=== PATIENT | male | born 1950 | race Caucasian/White ===

== ENCOUNTER 2020-02-29 08:59 | Day surgery (SDC) | payer MEDICARE ==
[~2020-02-29] VITALS: Ht 182.9 cm; Wt 92.7 kg
[2020-02-29] MEDS ORDERED: FURO20TA3 PO (10:07)
[2020-02-29] MEDS ORDERED: FLUT9.9S INH (10:07)
[2020-02-29] MEDS ORDERED: DOXY25TA45 PO (10:07)
[2020-02-29] MEDS ORDERED: LOSA100T14 PO (10:07)
[2020-02-29] MEDS ORDERED: ALBU8.5H8 INH (10:07)
[2020-02-29] MEDS ORDERED: MELATONIN PO (10:07)
[2020-02-29] MEDS ORDERED: CYAN25009 PO (10:10)
[2020-02-29] MEDS ORDERED: MULT-658 PO (10:10)
[2020-02-29] MEDS ORDERED: CHOL200074 PO (10:10)
[2020-02-29] MEDS ORDERED: CHOL10003 PO (10:10)
[2020-02-29] MEDS ORDERED: OMEG1CAP6 PO (10:10)
[2020-02-29 10:11] VITALS: BP 134/72
[2020-02-29 10:23] LABS: BASOPHILS # (AUTO) 0.02 x10^3/uL (0-0.1); BASOPHILS % (AUTO) 0 % (0-1); EOSINOPHILS # (AUTO) 0.14 x10^3/uL (0-0.4); EOSINOPHILS % (AUTO) 2 % (1-7); LYMPHOCYTES # (AUTO) 0.85 x10^3/uL (1-3.4); LYMPHOCYTES % (AUTO) 13 % (22-44); MD NO; MEAN CORPUSCULAR HEMOGLOBIN 31.7 pg (27.5-34.5); MEAN CORPUSCULAR HGB CONC 33.2 g/dL (33.2-36.2); MEAN CORPUSCULAR VOLUME 95.4 fL (81-97); MEAN PLATELET VOLUME 9.1 fL (7.4-10.4); MONOCYTES # (AUTO) 0.56 x10^3/uL (0.2-0.8); MONOCYTES % (AUTO) 8 % (2-9); NEUTROPHILS # (AUTO) 5.09 x10^3/uL (1.8-6.8); NEUTROPHILS % (AUTO) 76 % (42-75); PLATELET COUNT 255 x10^3/uL (130-400); RED BLOOD COUNT 4.47 x10^6/uL (4.38-5.82); RED CELL DISTRIBUTION WIDTH 14.3 % (9.4-14.8)
[2020-02-29 10:35] LABS: ANION GAP 7 mmol/L (5-15); CALCIUM 8.8 mg/dL (8.5-10.1); CHLORIDE 113 mmol/L (98-107); CREATININE 1.04 mg/dL (0.7-1.3)
[2020-02-29] MEDS ORDERED: SODIUM CHLORIDE 0.9% 1,000 ML IV SCH (11:00)
[2020-02-29] MEDS ORDERED: FENTANYL PF 100 MCG/2ML ONE (11:34)
[2020-02-29] MEDS ORDERED: HEPARIN 1,000 UNITS/ML, 10ML ONE (11:34)
[2020-02-29] MEDS ORDERED: VERAPAMIL 2.5 MG/ML, 2ML ONE (11:34)
[2020-02-29] MEDS ORDERED: MIDAZOLAM 1 MG/ML, 5ML ONE (11:34)
[2020-02-29] MEDS ORDERED: BIVALIRUDIN 250 MG ONE (11:34)
[2020-02-29] MEDS ORDERED: LIDOCAINE-MPF 1%, 5ML ONE (11:34)
== END 2020-02-29 14:02 | disposition home or self-care (01) ==
LOC: CACL 08:59
PROVIDERS: ATTEND Internal Medicine Cardiovascular Disease
DX: R06.09 Other forms of dyspnea (principal); I42.8 Other cardiomyopathies; I11.0 Hypertensive heart disease with heart failure; I50.9 Heart failure, unspecified
CPT/HCPCS: 36415; 80048; 85025; 93460; 99156; C1769; C1894; J1644; J2250; J3010; Q9967; J0583